=== PATIENT | female | born 1965 | race Caucasian/White ===

== ENCOUNTER 2019-06-17 12:26 | Outpatient (CLI) | payer OTHER ==
--- NOTE | 2019-06-17 14:39 | RAD ---
LUMBAR SPINE TWO VIEWS: HISTORY: Low back pain. FINDINGS: A transitional vertebra is present. No fracture, subluxation or bony destruction is identified. The re are degenerative changes in the lower lumbar spine. POS: [facility]
--- NOTE | 2019-06-17 14:40 | RAD ---
SACRUM AND COCCYX 3 VIEWS: HISTORY: Low back pain. FINDINGS: The SI joints are symmetric. I do not see any signs of fracture or other significant bony findings o f the sacrum or coccyx. IMPRESSION: Negative sacrum and coccyx. POS: OFF
== END 2019-06-17 12:27 | disposition home or self-care (01) ==
LOC: BICRAD 12:26
PROVIDERS: ATTEND Specialist
DX: M54.5 Low back pain (principal)
CPT/HCPCS: 72100; 72220

== ENCOUNTER 2019-07-08 07:54 | Outpatient (CLI) | payer OTHER ==
--- NOTE | 2019-07-08 08:55 | BD ---
BONE DENSITOMETRY USING DEXA: HISTORY: Postmenopausal screening for osteoporosis. FINDINGS: Lumbar Spine: BMD (g/cm2) L1 0.983 T-Score: -0.1 Z-Score: 0.7 L2 1.012 T-Score: -0.1 Z-Score: 0.7 L3 1.073 T-Score: -0.1 Z-Score: 0.8 L4 1.094 T-Score: 0.3 Z-Score: 1.2 L1-L4 1.043 T-Score: 0.0 Z-Score: 0.9 Femoral Neck: 0.732 T-Score: -1.1 Z-Score: -0.2 Total Femur: 0.946 T-Score: 0.0 Z-Score: 0.6 Impression: Osteopenia. POS: OFF
== END 2019-07-08 07:55 | disposition home or self-care (01) ==
LOC: BICMAMMO 07:54
PROVIDERS: ATTEND Specialist
DX: Z13.820 Encounter for screening for osteoporosis (principal); M85.859 Other specified disorders of bone density and structure, unspecified thigh
CPT/HCPCS: 77080

== ENCOUNTER 2019-11-27 10:31 | Outpatient (CLI) | payer OTHER ==
--- NOTE | 2019-11-27 11:41 | MRI ---
MRI LUMBAR SPINE PERFORMED WITHOUT CONTRAST ENHANCEMENT: Date: 11/27/2019 HISTORY: Back and bilateral hip pain. FINDINGS: The vertebral bodies are normal in height. Disc desiccation changes at L4-5 and L5-S1 are noted with mild disc narrowing at L5-S1 level. Vertebral body hemangioma of L2 is present. For the purposes of t his dictation, there is a rudimentary disc at the S1-S2 level. Therefore, axial image 55 corresponds to L5-S1. There is no significant periaortic adenopathy. The visualized portions of the kidneys are n ormal. T12-L1: Unremarkable. L1-L2: Unremarkable. L2-L3: Unremarkable. L3-L4: Degenerative facet changes without significant canal or foraminal stenosis. L4-L5: There is a central annular tear at this level. There are degenerative facet and ligamentous h ypertrophic changes with some borderline canal narrowing. No foraminal stenosis. L5-S1: There is a right paracentral disc protrusion at this level. This impresses on the right side of the thecal sac. Degenerative facet and ligamentous hypertrophic changes are associated with a mild to moderate degree of canal narrowing. No significant foraminal stenosis. IMPRESSION: 1. Right paracentral disc protrusion at L5-S1 with a mild to moderate degree of canal narrowing at t his level. 2. Central annular disc tear at L4-5. POS: [facility]
== END 2019-11-27 10:32 | disposition home or self-care (01) ==
LOC: TBSIIMAG 10:31
PROVIDERS: ATTEND Specialist
DX: M54.5 Low back pain (principal); M51.27 Other intervertebral disc displacement, lumbosacral region; M51.86 Other intervertebral disc disorders, lumbar region; M48.07 Spinal stenosis, lumbosacral region
CPT/HCPCS: 72148